=== PATIENT | female | born 2000 | race Caucasian/White ===

== ENCOUNTER 2021-04-18 15:36 | Emergency (ER) | payer SELFPAY ==
[2021-04-18 17:32] LABS: Pregnancy Test - Urine (BHCG) Negative (Negative); Pregu Control Background? CLEAR/WHITE (CLR/WHITE); Pregu Control Bar Appear? YES (CONTROL BAR); Specific Gravity 1.005 (1.002-1.036)
[2021-04-18] MEDS ORDERED: Ibuprofen 200 MG TAB ONE (17:32)
[2021-04-18 17:33] LABS: Bilirubin Neg (Negative); Blood, Urine Negative (Negative); Clarity Clear (Clear); Glucose, Urine (Dipstick) Normal (Negative); Ketone, Urine Negative (Negative); Leukocyte Negative (Negative); Nitrite Negative (Negative); Protein, Urine (Dipstick) Negative (Neg-Trace); Specific Gravity, Urine 1.005 (1.002-1.036); Urobilinogen Normal mg/dL (Less than 2)
== END 2021-04-18 18:44 | disposition home or self-care (01) ==
LOC: CSHERS 15:36
DX: R10.2 Pelvic and perineal pain (principal); Z86.16 Personal history of COVID-19
CPT/HCPCS: 81003; 81025; 99284